=== PATIENT | female | born 1980 | race Caucasian/White ===

== ENCOUNTER 2018-08-30 13:05 | Emergency (ER) | payer MEDICAID | END 2018-08-30 15:36 | disposition home or self-care (01) | LOC: FTE 13:05 | DX: J01.90 Acute sinusitis, unspecified (principal); G40.909 Epilepsy, unspecified, not intractable, without status epilepticus; S01.512A Laceration without foreign body of oral cavity, initial encounter; X58.XXXA Exposure to other specified factors, initial encounter | CPT/HCPCS: 99283; Z7502 ==

== ENCOUNTER 2018-10-09 12:41 | Emergency (ER) | payer MEDICAID | END 2018-10-09 14:10 | disposition home or self-care (01) | LOC: FTE 12:41 | DX: K13.79 Other lesions of oral mucosa (principal) | CPT/HCPCS: 99282; Z7502 ==

== ENCOUNTER 2018-10-27 10:42 | Emergency (ER) | payer MEDICAID | END 2018-10-27 12:30 | disposition home or self-care (01) | LOC: E/R 10:42 | DX: S01.5 Open wound of lip and oral cavity (principal); R40.2142 Coma scale, eyes open, spontaneous, at arrival to emergency department; R40.2362 Coma scale, best motor response, obeys commands, at arrival to emergency department; R40.2252 Coma scale, best verbal response, oriented, at arrival to emergency department; G40.909 Epilepsy, unspecified, not intractable, without status epilepticus; X58.XXXS Exposure to other specified factors, sequela; Y92.9 Unspecified place or not applicable | CPT/HCPCS: 99282; Z7502 ==